=== PATIENT | male | born 1965 | race Asian ===

== ENCOUNTER 2018-04-10 16:45 | Emergency (ER) | payer OTHER ==
[~2018-04-10] VITALS: Ht 182.9 cm; Wt 90.7 kg
[~2018-04-10 16:45] MED LIST: ASPIRIN EC81 MG PO; AUGMENTIN 875-1 EAC1 PO; AZOR 10-40 MG1 EACH PO; CEPHALEXIN250 MG ORAL; VYTORIN
[2018-04-10 16:55] VITALS: BP 100/62
[2018-04-10] MEDS ORDERED: Lidocaine 1% 10mg/ml/Epi 0.005mg/ml 30ml vial INJ ONE (17:00)
[2018-04-10] MEDS ORDERED: Tetanus/Diptheria/Pertussis Vaccine 0.5ml Syr IM ONE (17:00)
[2018-04-10] MEDS ORDERED: Bacitracin Oint UD TOPIC ONE (18:15)
--- NOTE | 2018-04-10 18:35 | Emergency Room Report ---
History of Present Illness General Chief Complaint: Laceration Source: Patient Present Illness HPI 53-year-old male presents to the emergency department complaining of laceration to the dorsum of the left hand times one hour. Patient denies pain at this time he reports some continued bleeding. Patient does not know when his last tetanus vaccination was. Patient denies taking blood thinning medications. Patient states that he sustained injury accidentally by a shovel. Patient states that he is right-handed. Patient states that at home they did irrigate the laceration. Denies bony tenderness. Patient denies previous injury to this extremity. Denies numbness, tingling or loss of sensation or gross motor movements of the hand or fingers. Allergies: Coded Allergies: No Known Allergies (Unverified , 04/10/18) Patient History Past Medical History: see triage record Past Surgical History: none Pertinent Family History: none Reviewed Nursing Documentation: PMH: Agreed; PSxH: Agreed Nursing Documentation-PMH Past Medical History: No Stated History Review of Systems All Other Systems: negative except mentioned in HPI Physical Exam Vital Signs Date Time Temp Pulse Resp B/P (MAP) Pulse Ox O2 Delivery O2 Flow Rate FiO2 04/10/18 16:39 98.2 98 16 100/62 100 Room Air 98.2 Sp02 EP Interpretation: reviewed, normal General Appearance: no apparent distress, alert, GCS 15, non-toxic Head: normocephalic, atraumatic ENT: hearing grossly normal, normal voice Neck: full range of motion Respiratory: lungs clear, normal breath sounds, speaking full sentences Cardiovascular #1: regular rate, rhythm, normal capillary refill Musculoskeletal: back normal, gait/station normal, normal range of motion, non- tender Neurologic: alert, oriented x3, responsive, motor strength/tone normal, sensory intact, speech normal, grossly normal Psychiatric: judgement/insight normal Skin: normal color, no rash, warm/dry, well hydrated, laceration - Moderate Left dorsal hand laceration approx 4 inches in length, - just distal to the thumb. no obvious Fb. not grossly contaminated. currently bleeding. Procedures Laceration/Wound Repair Laceration/Wound Repair : Consent: Verbal Wound Location: upper extremity - dorsal left hand Wound's Depth, Shape: linear Wound Length (cm): 8 Wound Explored: clean Irrigated w/ Saline (ccs): 1000 Betadine Prep?: Yes Anesthesia: Lidocaine w/ Epi Volume Anesthetic (ccs): 5 Wound Repaired With: sutures Suture Size/Type: 4:0 Number of Sutures: 9 Layer Closure?: Yes Deep Layer Suture Size/Type: 4:0 Number Deep Layer Sutures: 6 Sterile Dressing Applied?: Yes Splint Applied?: Yes Type of Splint Applied: thumb spika Sling Applied?: No Patient Tolerated: Well Complications: None Medical Decision Making PA Attestation Dr. Bailon is my supervising Physician whom patient management has been discussed with. Diagnostic Impression: Primary Impression: Laceration ER Course 53-year-old male presents to the emergency department complaining of laceration to the dorsum of the left hand times one hour. Patient denies pain at this time he reports some continued bleeding. Patient does not know when his last tetanus vaccination was. Patient denies taking blood thinning medications. Patient states that he sustained injury accidentally by a shovel. Patient states that he is right-handed. Patient states that at home they did irrigate the laceration. Denies bony tenderness. Patient denies previous injury to this extremity. Denies numbness, tingling or loss of sensation or gross motor movements of the hand or fingers. . Ddx considered but are not limited to laceration, tendon injury, cellulitis, amputation just to name a few. Vital signs: are WNL, pt. is afebrile H&PE are most consistent with: Moderate Left dorsal hand laceration approx 4 inches in length, - just distal to the thumb. Does not appear to involve tendon on exploration of the wound. no obvious fb's able to flex and extend fingers against resistance. ORDERS: none required at this time, the diagnosis is clinical ED INTERVENTIONS: -Tetanus vaccine was administered as pt. vaccination status was unknown. - The wound was copiously irrigated with normal saline, and explored for foreign body for which no FB was found. - pt. is anesthetized with 1%lidocaine w. epi. -6 deep interrupted sutures were used to approximate the underlying subcutaneous fat of the open wound. ( chromic Gut 4.0) - The wound was approximated and closed using 9 interrupted 4.0 Ethilon sutures. -Bacitracin and sterile dressing is applied. Thumb Spika Splint applied by systems testing laboratory technician. Pt. remains neurovascularly intact. Discussed with patient: That we make every effort to approximate the laceration as best as we can so that scarring will be as cosmetically pleasing as possible with our limited cosmetic skill set in the Emergency dept. Regardless of our best efforts there will be scarring after laceration repair. The extent of scarring is unknown at this time. I d/w pt. that it is important that he also follow up with hand specialist for evaluation. DISCHARGE: At this time pt. is stable for d/c to home. Will provide printed patient care instructions, and any necessary prescriptions. Care plan and follow up instructions have been discussed with the patient prior to discharge. Last Vital Signs Date Time Temp Pulse Resp B/P (MAP) Pulse Ox O2 Delivery O2 Flow Rate FiO2 04/10/18 18:18 98.2 04/10/18 16:55 98 16 100/62 100 Room Air Disposition: HOME, SELF-CARE Condition: Stable Scripts Bacitracin/Polymyxin B Sulfate (BACITRACIN-POLYMYXIN OINTMENT) 28.35 Gm Oint...g. 1 APPLIC TP BID, #28.3 GM Prov: Arelis Rodriguez 04/10/18 Acetaminophen* (TYLENOL EXTRA STRENGTH*) 500 Mg Tablet 500 MG ORAL Q6H, #20 TAB 0 Refills Prov: Arelis Rodriguez 04/10/18 Cephalexin* (KEFLEX*) 500 Mg Capsule 500 MG ORAL EVERY 12 HOURS for 7 Days, #14 CAP 0 Refills Prov: Arelis Rodriguez 04/10/18 Referrals: NON PHYSICIAN (PCP) Patient Instructions: Laceration Care, Adult Additional Instructions: Take medications as directed. --- SUTURES TO BE REMOVED IN 7-10 DAYS---- Follow up with a Primary Care Provider in 3-5 days, recommend Hand Specialist follow up. --Please review list of primary care clinics, if you do not already have a primary care provider Return sooner to ED if new symptoms occur, or current symptoms become worse. - Please note that this Emergency Department Report was dictated using [employer] consultant technology software, occasionally this can lead to erroneous entry secondary to interpretation by the dictation equipment. Arelis Rodriguez Apr 10, 2018 18:35
[2018-04-10] MEDS ORDERED: TYLENOL EXTRA500 MG ORAL (18:36)
[2018-04-10] MEDS ORDERED: BACITRACIN-P28.35 GM TP (18:36)
[2018-04-10] MEDS ORDERED: CEPHALEXIN500 MG ORAL (18:36)
[2018-04-10 18:44] VITALS: BP 100/62
== END 2018-04-10 18:47 | disposition home or self-care (01) ==
LOC: EDBD 16:45 → EDAGE 16:45 → MERGE 17:53 → EMR 17:53
DX: S61.412A Laceration without foreign body of left hand, initial encounter (principal); W27.8XXA Contact with other nonpowered hand tool, initial encounter; Y93.H2 Activity, gardening and landscaping; Y92.007 Garden or yard of unspecified non-institutional (private) residence as the place of occurrence of the external cause; Z23 Encounter for immunization
CPT/HCPCS: 12044; 90471; 90715; 99282; Z7502